=== PATIENT | male | born 1965 | race Caucasian/White ===

== ENCOUNTER 2024-12-02 03:01 | Observation (INO) | payer OTHER, SELFPAY ==
[2024-12-02] MEDS ORDERED: Famotidine/PF 20 mg/2ml Vial ONE (03:25)
[2024-12-02] MEDS ORDERED: Morphine 4 MG/ML VIAL ONE ×2 (03:25→04:42)
[2024-12-02] MEDS ORDERED: Ondansetron PF 4 MG/2 ML Vial ONE ×2 (03:25→10:24)
[2024-12-02 03:51] LABS: #Basophils 0.03 10x3/uL (0.0-0.2); #Eosinophils 0.03 10x3/uL (0.0-0.5); #Monocytes 0.75 10x3/uL (0.0-1.1); #Neutrophils 5.81 10x3/uL (1.5-8.4); %Basophils 0.4 % (0.0-2.0); %Eosinophils 0.4 % (0.0-6.0); %Lymphocytes 14.2 % (18.0-47.0); %Monocytes 9.7 % (0.0-10.0); Hematocrit 43.8 % (38.8-50.0); Hemoglobin 15.6 g/dL (13.5-17.5); Mean Corpuscular HGB CONC 35.6 g/dL (32.0-36.0); Mean Corpuscular Hemoglobin 30.9 pg (27.0-33.0); Mean Corpuscular Volume 86.7 fL (81.2-95.1); Platelet Count 234 10x3/uL (150-450); RBC Distribution Width 12.1 % (11.5-14.5); Red Blood Cell (RBC) Count 5.05 10x6/uL (4.32-5.72); White Blood Cell (WBC) Count 7.74 10x3/uL (3.5-10.5)
[2024-12-02 04:07] LABS: ALT (SGPT) 171 U/L (Less than 45); AST (SGOT) 72 U/L (11-34); Albumin 4.4 g/dL (3.1-4.5); Alkaline Phosphatase 148 U/L (40-110); Anion Gap 17 mmol/L (10-20); BUN (Urea Nitrogen) 13 mg/dL (8.4-25.7); Bilirubin, Total 0.6 mg/dL (0.3-1.2); Calc. Creatinine Clearance 0 mL/min (70-130); Calcium 10.3 mg/dL (7.8-10.44); Carbon Dioxide 25 mmol/L (23-31); Chloride 100 mmol/L (98-107); Estimated GFR 85; Glucose 137 mg/dL (80-115); Lipase 22 U/L (8-78); Potassium 3.8 mmol/L (3.5-5.1); Protein, Total 7.4 g/dL (5.8-8.1); Sodium 138 mmol/L (136-145)
[2024-12-02 04:13] LABS: Troponin I Less than 0.010 ng/mL (< 0.028)
[2024-12-02] MEDS ORDERED: Ketorolac Tromethamine 30 MG (1 mL) VIAL ONE (04:42)
[2024-12-02] MEDS ORDERED: Piperacillin/Tazobactam 4.5 GM VIAL ONE (05:47)
[2024-12-02 06:41] VITALS: BMI 31.2
[2024-12-02] MEDS: Morphine 4 MG/ML VIAL SLOW IVP SCH (07:05)
[2024-12-02] MEDS ORDERED: Bupivacaine HCl 0.5%/Epinephrine 1:200,000/PF 30 ml Vial ONE (09:25)
[2024-12-02] MEDS ORDERED: PROPOFOL 20 ML ONE (09:27)
[2024-12-02] MEDS ORDERED: Lidocaine 1% PF 5 ML VIAL ONE (09:27)
[2024-12-02] MEDS ORDERED: Rocuronium Bromide 10 MG/ML (10ML VIAL) ONE (09:27)
[2024-12-02] MEDS ORDERED: fentaNYL 50 mcg/mL 1 mL Vial ONE (09:27)
[2024-12-02] MEDS ORDERED: CEFAZOLIN 2 GM in Sodium Chloride 0.9% 100 ML IVPB SCH (09:30)
[2024-12-02] MEDS ORDERED: Sevoflurane 250 ML INH ANEST BOTTLE ONE (09:33)
[2024-12-02] MEDS ORDERED: Iopamidol 370 76% 100 ML VIAL ONE (09:47)
[2024-12-02] MEDS ORDERED: CEFAZOLIN 2 GM VIAL ONE (09:50)
[2024-12-02] MEDS ORDERED: Dexamethasone 4 mg/ml Vial ONE (10:24)
[2024-12-02] MEDS ORDERED: Dexmedetomidine 200 MCG/2 ML VIAL ONE (10:31)
[2024-12-02] MEDS ORDERED: SUGAMMADEX SODIUM 200 MG/2 ML VIAL ONE (10:47)
[2024-12-02] MEDS ORDERED: Ondansetron PF 4 MG/2 ML Vial IVP PRN (11:25)
[2024-12-02] MEDS ORDERED: Morphine 4 MG/ML VIAL SLOW IVP PRN (11:25)
[2024-12-02 11:45] VITALS: BP 106/56; TEMP 98.9
[2024-12-02] MEDS: Sodium Chloride 0.9% 1,000 ML IV SCH (12:24)
[2024-12-02] MEDS: Piperacillin/Tazobactam 3.375 GM in Sodium Chloride 0.9% 100 ML IVPB SCH ×2 (12:24→13:19)
[2024-12-02] MEDS: Acetaminophen/Codeine 30-300mg Tablet PO PRN (17:08)
== END 2024-12-02 18:35 | disposition home or self-care (01) ==
LOC: CSHERS 03:01 → CSHERHOLD 05:42 → CSHTELE 06:30
PROVIDERS: ADMIT Student in an Organized Health Care Education/Training Program; ATTEND Student in an Organized Health Care Education/Training Program
PROC: 0FT44ZZ Resection of Gallbladder, Percutaneous Endoscopic Approach (ICD-10-PCS; principal; 2024-12-02)
DX: R10.11 Right upper quadrant pain (principal); K80.12 Calculus of gallbladder with acute and chronic cholecystitis without obstruction; G47.33 Obstructive sleep apnea (adult) (pediatric); Z79.899 Other long term (current) drug therapy; Z90.49 Acquired absence of other specified parts of digestive tract
CPT/HCPCS: 71045; 71275; 74174; 76705; 80053; 83690; 84484; 85025; 88304; 93005; 96374; 96375; 96376; C1713; G0378; J1100; J1885; J2270; J2405; J2543; J2704; J3010; J3490; J7030; Q9967